=== PATIENT | female | born 1945 | race Caucasian/White ===

== ENCOUNTER → 2018-12-19 | Outpatient (CLI) | payer MEDICARE, BC ==
--- NOTE | 2018-12-19 14:17 | MR ---
EXAMINATION TYPE: MR pelvis wo/w con DATE OF EXAM: 12/19/2018 COMPARISON: Ultrasound dated 01/11/[address] abdomen pelvis dated 06/13/2014 HISTORY: Abnormal US of left ovary CONTRAST: Standard multiplanar, multisequence MRI departmental protocol utilizing 9 ml mL intravenous Gadavist gadolinium contrast. FINDINGS: On the ultrasound of 01/11/2014 within the left adnexa there was a 3.7 x 3.5 x 3.3 cm cysti c structure. On the CT of 06/13/2014 this measured 3.5 cm approximately. The left ovary measures approximately 5.4 x 3.2 x 4.5 cm and contains a T2 hyperintense and T1 hypoin tense 4.7 x 3.1 x 3.7 cm cystic lesion. There is no internal enhancement nor internal septations. No mural nodule is seen. No surrounding adenopathy. The right ovary is atrophic measuring approximately 1.0 x 1.0 x 1.1 cm. The uterus and cervix together measure approximately 6.7 x 2.3 x 3.2 cm. There is mild heterogeneity of the uterus with a subtle 4 mm anterior upper uterine segment intramural probable leiomyoma. Endome trium is within normal limits for a postmenopausal female measuring 2 mm. Junctional zone is not well defined although appears atrophic. No concern for adenomyosis. Sigmoid colon is largely decompressed. Urinary bladder is incompletely distended with upper limits no rmal size of the wall thickness, likely due to incomplete distention. No suspicious adenopathy within the pelvis. Bone marrow signal is overall within normal limits. Small nabothian cyst is present. Cer vix is somewhat heterogenous with possible scant internal fluid. IMPRESSION: 1. Simple left ovarian cyst measures 5.4 cm, increased in size from 2014 where this measured 3.7 cm. However there is no abnormal enhancement nor internal complexity or a consensus criteria recommends a nnual follow-up ultrasound for postmenopausal female with simple cysts between 1 and 7 cm. Surgical e valuation is recommended for cyst greater than 7 cm in postmenopausal females. Therefore if there is continued interval growth surgical consultation would be recommended. 2. Heterogeneity of the cervix with possible scant fluid. No endometrial thickening. Direct visualiza tion of the cervix is recommended. 3. Subtle 4 mm anterior uterine intramural probable leiomyoma.
== END | disposition home or self-care (01) ==
LOC: RADMRIMAIN 12:03
PROVIDERS: ATTEND Family Medicine
DX: N83.292 Other ovarian cyst, left side (principal); N95.9 Unspecified menopausal and perimenopausal disorder
CPT/HCPCS: 72197; A9585

== ENCOUNTER → 2022-12-06 | Outpatient (CLI) | payer MEDICARE, BC ==
--- NOTE | 2022-12-08 09:24 | MM ---
Reason for Exam: Screening (asymptomatic). Last mammogram was performed 2 year(s) and 0 month(s) ago. Patient History: Menarche at age 14. First Full-Term at age 30. Postmenopausal. Patient used Hormonal Contraceptives for 10 years. Risk Values: Fina 5 year model risk: 2.0%. NCI Lifetime model risk: 4.2%. Prior Study Comparison: 03/24/2005 Bilateral Diagnostic Mammogram, [facility]. 08/02/2014 Bilateral Screening Mammogram, [facility]. 08/20/2016 Bilateral Screening Mammogram, [facility]. 09/01/2018 Bilateral Screening Mammogram, [facility]. 12/09/2020 Bilateral Screening Mammogram, [facility]. Tissue Density: There are scattered fibroglandular densities. Findings: Analyzed By CAD. There is no suspicious group of microcalcifications or new suspicious mass in either breast. Overall Assessment: Negative, BI-RAD 1 Management: Screening Mammogram of both breasts in 1 year. . Patient should continue monthly self-breast exams. A clinical breast exam by your physician is recommended on an annual basis. This exam should not preclude additional follow-up of suspicious palpable abnormalities. Note on Fina scores and lifetime risk: 1. A Fina score greater than 3% is considered moderate risk. If this is the case, consider specialist referral to assess eligibility for a risk reducing agent. 2. If overall lifetime risk for the development of breast cancer is 20% or higher, the patient may qualify for future screening with alternating mammogram and breast MRI. Electronically signed and approved by: David Prince M.D. Radiologis
== END | disposition home or self-care (01) ==
LOC: RADMAMWWP 13:32
PROVIDERS: ATTEND Family Medicine
DX: Z12.31 Encounter for screening mammogram for malignant neoplasm of breast (principal); Z78.0 Asymptomatic menopausal state
CPT/HCPCS: 77063; 77067

== ENCOUNTER → 2023-08-22 | Outpatient (CLI) | payer MEDICARE, BC ==
--- NOTE | 2023-08-22 14:52 | CT ---
EXAMINATION TYPE: CT chest w con CT DLP: 432 mGycm, Automated exposure control for dose reduction was used. DATE OF EXAM: 08/22/2023 2:30 PM COMPARISON: 06/13/2014 06/01/2010. CLINICAL INDICATION:Female, 78 years old with history of R91.8 ABNORMAL LUNG FINDINGS,Z13.820 SCR FOR OSTP; [facility], Abnormal chest xray TECHNIQUE: Multiple axial images were obtained through the chest. Sagittal and coronal reformats were created for review. Contrast used:100 mL of Isovue 300 with IV Contrast (None if empty) Oral contrast used: (None if empty) FINDINGS: LUNGS/ PLEURA: Mild to moderate emphysema changes in the lung apices. Minor fissure intrafissural lym ph nodes on the right. AIRWAY: Patent and unremarkable. HEART: Size within normal limits. MEDIASTINUM: No gross evidence of adenopathy. Small hiatal hernia. VASCULATURE: No aortic aneurysm. Arthrosis course of the arterial vasculature. MUSCULOSKELETAL: Mild disc degeneration changes are present throughout the thoracolumbar spine. SOFT TISSUES/LYMPH NODES: Unremarkable. LOWER NECK: No significant findings. UPPER ABDOMEN: The gallbladder surgically absent. IMPRESSION: 1. Mild/moderate emphysema. 2. No suspicious masses or lymphadenopathy. 3. Small hiatal hernia.
--- NOTE | 2023-08-23 13:41 | BD ---
EXAMINATION TYPE: Axial Bone Density DATE OF EXAM: 08/22/2023 CLINICAL HISTORY: 78 years old Female. ICD-10 CODE: ,Z13.820 SCR FOR OSTP Height: 63 Weight: 188.1 FRAX RISK QUESTIONS: Alcohol (3 or more units per day): no Family History (Parent hip fracture): no Glucocorticoids (More than 3mos): no (Ex: prednisone, prednisolone, methylprednisolone, dexamethasone, and hydrocortisone). History of Fracture in Adulthood: no Secondary Osteoporosis: 1. Type 1 Diabetes: no 2. Hyperthyroidism: no 3. Menopause before 45: no 4. Malnutrition: no 5. Chronic liver disease: no Rheumatoid Arthritis: no Current Tobacco Use: no RISK FACTORS HISTORY OF: Surgery to Spine/Hip(right/left)/Wrist (right/left): no When: EXAM MEASUREMENTS: Bone mineral densitometry was performed using the [employer] System. Bone mineral density as measured about the Lumbar spine is: ----- L1-L4(G/cm2): 0.964 T Score Values are as follows: ----- L1: -2.4 ----- L2: -2.8 ----- L3: -1.0 ----- L4: -1.4 ----- L1-L4: -1.8 Z Score Values are as follows: ----- L1: -1.3 ----- L2: -1.7 ----- L3: 0.1 ----- L4: -0.3 ----- L1-L4: -0.7 Bone mineral density has: increased 16.3 % since study of: 02.10.2012 Bone mineral density about the R hip (g/cm2): 0.886 Bone mineral density about the L hip (g/cm2): 0.904 T Score values are as follows: -----R Neck: -2.0 -----L Neck: -1.9 -----R Total: -1.0 -----L Total: -0.8 Z Score values are as follows: -----R Neck: -0.4 -----L Neck: -0.4 -----R Total: 0.3 -----L Total: 0.5 Bone mineral density has: increased 10.0 % since study of: 02.10.2012 FRAX%s: The graph provided illustrates a 13.0% chance for a major osteoporotic fx and a 3.3% chance f or the hips probability for fx in 10 years time. IMPRESSION: Osteopenia (T Score between -2.5 and -1). There is slightly increased risk of fracture and the patient may be considered for treatment. Re-Screen 2-5 years. NOTE: T-SCORE=SD OF THE YOUNG ADULT MEAN.
== END | disposition home or self-care (01) ==
LOC: RADBDWWP 13:13
PROVIDERS: ATTEND Family Medicine
DX: Z13.820 Encounter for screening for osteoporosis (principal); R91.8 Other nonspecific abnormal finding of lung field; J43.9 Emphysema, unspecified; K44.9 Diaphragmatic hernia without obstruction or gangrene
CPT/HCPCS: 77080; 71260; Q9967